=== PATIENT | female | born 1975 | race Caucasian/White ===

== ENCOUNTER → 2017-03-02 | Outpatient (CLI) | payer MEDICAID | END | disposition home or self-care (01) | LOC: CARD 10:14 | PROVIDERS: ATTEND Registered Nurse | DX: M48.06 Spinal stenosis, lumbar region (principal) | CPT/HCPCS: 95885; 95908 ==

== ENCOUNTER 2017-04-06 11:27 | Emergency (ER) | payer MEDICAID ==
[~2017-04-06] VITALS: Ht 167.6 cm; Wt 110.9 kg
[2017-04-06 12:15] VITALS: BP 142/87
== END 2017-04-06 12:42 | disposition home or self-care (01) ==
LOC: ED 12:25
DX: L03.113 Cellulitis of right upper limb (principal); I10 Essential (primary) hypertension; F15.10 Other stimulant abuse, uncomplicated
CPT/HCPCS: 99283

== ENCOUNTER 2017-07-28 22:04 | Emergency (ER) | payer MEDICAID ==
[~2017-07-28] VITALS: Ht 167.6 cm; Wt 110.0 kg
[2017-07-28] MEDS ORDERED: TRAM50TA2 PO (23:09)
[2017-07-28] MEDS ORDERED: OMEP20TA62 PO (23:09)
[2017-07-28] MEDS ORDERED: HYDROmorphone 1 MG/ML, 1ML ONE (23:26)
[2017-07-28] MEDS ORDERED: HYDROmorphone 1 MG/ML, 1ML IM ONE (23:30)
[2017-07-29 00:23] VITALS: BP 139/82
== END 2017-07-29 00:44 | disposition home or self-care (01) ==
LOC: ED 23:59
DX: S43.401A Unspecified sprain of right shoulder joint, initial encounter (principal); I10 Essential (primary) hypertension; Z88.5 Allergy status to narcotic agent; Z88.1 Allergy status to other antibiotic agents; Z88.8 Allergy status to other drugs, medicaments and biological substances; F17.200 Nicotine dependence, unspecified, uncomplicated; X50.0XXA Overexertion from strenuous movement or load, initial encounter; Y93.89 Activity, other specified; Y92.098 Other place in other non-institutional residence as the place of occurrence of the external cause; Y99.8 Other external cause status
CPT/HCPCS: 29105; 73030; 96372; 99284; J1170